=== PATIENT | female | born 1995 | race Caucasian/White ===

== ENCOUNTER 2019-08-27 19:14 | Emergency (ER) | payer MEDICAID, SELFPAY ==
--- NOTE | ~2019-08-27 | CT_ITS ---
EXAMINATION: CT abdomen pelvis w con DATE: 08/28/2019 01:08 INDICATION: Abdominal pain. TECHNIQUE: Computed tomography (CT) of the abdomen and pelvis was performed with 100 mL Omnipaque 350 intravenous contrast. Automated exposure control and iterative reconstruction technique were employe d. The dose-length product was 318.65 mGy-cm. COMPARISON: None. FINDINGS: The visualized portions of the lung bases demonstrate mild atelectasis on the right. No ple ural effusion. The heart size is normal. No pericardial effusion. The liver, gallbladder, spleen, morrow creas, adrenal glands, and kidneys are normal. There is a 3.7 cm mass in left ovary measuring greater than simple fluid in attenuation. There are no dilated loops of bowel. The appendix is normal. There is trace pelvic ascites. There are no pathologically enlarged lymph nodes. There is mild thoracic sp ondylosis. IMPRESSION: 1. 3.7 cm left ovarian mass, most likely a hemorrhagic cyst. Pelvis ultrasound is recommended. Reviewed, dictated and finalized at location A. STRIAL EQUIPMENT MECHANIC
--- NOTE | ~2019-08-27 | XR_ITS ---
EXAMINATION: XR chest 1V DATE: 08/27/2019 22:17 INDICATION: Cough, chills, nausea and vomiting TECHNIQUE: frontal view of the chest was obtained. COMPARISON: None FINDINGS: The lungs are clear with no focal airspace opacities, pulmonary edema, pleural effusion or pneumothor ax. The cardiomediastinal silhouette is normal. Mild thoracolumbar levocurvature. IMPRESSION: 1. No acute cardiopulmonary disease. Reviewed, dictated and finalized at location A. ERN PHILOSOPHY PROFESSOR
[2019-08-27 19:27] VITALS: BP 105/66; PULSE 77; RESP 16; TEMP 36.9; O2SAT 99
[2019-08-27 19:44] LABS: Basophils Percent Auto 0.7 % (0.2-1.2); Eosinophils Absolute Auto 0.1 K/mm3 (0-0.3); Eosinophils Percent Auto 0.9 % (0-4.4); Hematocrit 42.3 % (37.0-47.0); Hemoglobin 14.2 g/dL (12.0-15.0); Immature Granulocyte Absolute 0.01 K/mm3 (0.00-0.031); Immature Granulocyte Percent A 0.2 % (0-0.5); Lymphocytes Absolute Auto 1.66 K/mm3 (0.9-3.2); Lymphocytes Percent Auto 30.7 % (18.3-44.2); Mean Corpuscular HGB Conc 33.6 g/dl (32-36); Mean Corpuscular Hemoglobin 31.8 pg (26-34); Mean Corpuscular Volume 94.6 fl (80-100); Monocytes Absolute Auto 0.5 K/mm3 (0.1-0.6); Neutrophils Absolute Auto 3.1 K/mm3 (1.3-6.7); Neutrophils Percent Auto 57.5 % (45.5-73.1); Platelet Count Result 208 k/mm3 (150-375); Red Blood Count 4.47 M/mm3 (4.2-5.4); Red Cell Distribution Width 12.4 % (11.5-14.5); White Blood Count 5.4 K/mm3 (4.5-10.0)
[2019-08-27 19:56] LABS: Alanine Aminotransferase 14 U/L (4-35); Albumin Level 4.3 g/dL (3.5-5.1); Alkaline Phosphatase 51 U/L (38-126); Aspartate Amino Transferase 20 U/L (14-36); Bilirubin,Total < 0.1 mg/dL (0.2-1.3); Blood Urea Nitrogen 9 mg/dL (7-17); Calcium 8.9 mg/dL (8.4-10.2); Carbon Dioxide 23 mmol/L (22-30); Chloride 105 mmol/L (98-107); Estimated CRCL calculation 92 ml/min; Estimated Glomerular Filt Rate > 60; Glucose 94 mg/dL (65-105); Lipase 117 U/L (23-300); Sodium 140 mmol/L (137-145)
[2019-08-27 21:30] VITALS: BP 106/77; PULSE 67; RESP 12; O2SAT 100
[2019-08-27 21:44] LABS: Add Urine Microscopic? YES; Amorphous Sediment Urine Few; Appearance Urine Clear (Clear); Bilirubin Urine Negative (Negative); Blood Urine Negative (Negative); Color Urine Yellow (Yellow); Glucose Urine UA Negative (Negative); Ketones Urine Negative (Negative); Leukocyte Esterase Ur Negative LEU/UL (Negative); Mucus Urine Few /lpf; Nitrate Urine Negative (Negative); Protein Urine Negative (Negative); RBC Urine 0-2 /hpf (0-2); Specific Grav Ur 1.029 (1.001-1.035); Squamous Epithelial Cell Urine Few /hpf (Few); WBC Urine 0-3 /hpf
--- NOTE | 2019-08-27 22:10 | ED.ABDPAIN ---
HPI - Abdominal Pain General Chief Complaint: Abdominal Pain Stated Complaint: n/v, feeling hot, stomach pain Time Seen by Provider: 08/27/19 20:54 Source: patient and RN notes reviewed Mode of arrival: ambulatory Limitations: no limitations History of Present Illness HPI narrative: Pt is a 24 y/o female presenting to the ED c/o ABD pain. Pt states she has been feeling sick for 1 week. Pt reports ABD pain, N/V, dizziness, blurry vision, near-syncope, subjective fever, FLORES, cough, congestion, SOB, and urinary frequency, but denies diarrhea or dysuria. Pt states her LMP was on 08/03 and notes she has control implanted in her arm. Pt reports Hx's of Endometriosis, GERD, Sjogren's, Rheumatoid Arthritis, and Fibromyalgia. Pt notes she had Influenza A a month ago. Pertinent past history: none Onset (ago): week(s) (1) Location: other (ABD) Associated symptoms: nausea, vomiting, fever (Subjective), syncope (Near) and other (Dizziness; Blurry vision; Headache; cough; congestion; SOB; urinary frequency) Related Data Date of Last Menstrual Period: 08/03/19 Review of Systems Constitutional: Constitutional: Reports fever(s) (Subjective) Eyes: Eyes: Reports blurry vision ENT: Reports nasal congestion Respiratory: Respiratory: Reports cough and Reports dyspnea Gastrointestinal: Gastrointestinal: Reports abdominal pain, Denies diarrhea, Reports nausea and Reports vomiting Genitourinary: Genitourinary: Denies dysuria and Reports other (Urinary frequency) Neurologic: Reports dizziness, Reports syncope (Near) and Reports headache(s) PMFSH Past Medical History Medical History Endometriosis Fibromyalgia GERD (gastroesophageal reflux disease) Rheumatoid arthritis Sjogrens syndrome Surgical History Surgical History No significant past surgical history Social History Social History Smoking status: Current every day smoker Exam Narrative: Exam Narrative: General appearance: Well-developed, well-nourished, no family member at the bedside Skin: Normal color Head: Normocephalic, nontraumatic Eyes: Clear conjunctiva ENT: Oropharynx normal, ears normal, nose normal Neck: Supple, nontender Chest and respiratory: Airway patent, no respiratory distress, no accessory muscle use Heart: Regular rate/rhythm Abdomen: Soft, slight diffuse tenderness, no guarding or rebound, no organomegaly, quiet bowel sounds Vascular: Normal peripheral pulses, normal capillary refill. Musculoskeletal: Normal range of motion, nontender back Neurologic: Alert and oriented ?3, ICE GRINDER is normal as tested, no gross motor deficit Course Course Emergency Course: Improving Vital Signs Vital signs: Vital Signs Temperature 36.9 C 08/27/19 19:27 Pulse Rate 77 08/27/19 19:27 Respiratory Rate 16 08/27/19 19:27 Blood Pressure 105/66 08/27/19 19:27 Pulse Oximetry 99 08/27/19 19:27 Temperature 36.9 C 08/27/19 19:27 Pulse Rate 67 08/27/19 21:30 Respiratory Rate 12 08/27/19 21:30 Blood Pressure 106/77 08/27/19 21:30 Pulse Oximetry 100 08/27/19 21:30 MDM - Abdominal Pain MDM Narrative Medical decision making narrative: Viral syndrome, urinary tract infection, electrolyte imbalance is my concern. Labs, UA, chest x-ray ordered. Further plan to follow. IV fluid, IV Toradol and morphine ordered. Lab Data Result diagrams: 08/27/19 19:34 08/27/19 19:34 Labs: Lab Results 08/27/19 08/27/19 08/27/19 Range/Units 19:34 19:34 21:34 WBC 5.4 (4.5-10.0) K/mm3 RBC 4.47 (4.2-5.4) M/mm3 Hgb 1
[2019-08-27] MEDS: SODIUM CHLORIDE 0.9% IV 1,000 ML 999 ML IV CONT (22:48)
[2019-08-27] MEDS: MORPHINE SULFATE 4 MG/ML INJ IV PUSH (22:49)
[2019-08-27] MEDS: KETOROLAC 30 MG/ML VIAL (*BKC) IV PUSH (22:50)
[2019-08-27] MEDS: ONDANSETRON INJ 4 MG/2 ML VIAL IV PUSH (22:50)
[2019-08-28] MEDS: HYDROMORPHONE HCL 1 MG/ML INJ 0.5 MG IV PUSH (00:42)
[2019-08-28 01:47] VITALS: BP 121/86; PULSE 98; RESP 17; O2SAT 97
--- NOTE | 2019-08-28 01:52 | ED.ABDPAIN ---
HPI - Abdominal Pain General Chief Complaint: Abdominal Pain Stated Complaint: n/v, feeling hot, stomach pain Time Seen by Provider: 08/27/19 20:54 Source: patient and RN notes reviewed Mode of arrival: ambulatory Limitations: no limitations History of Present Illness Pertinent past history: none Onset (ago): week(s) (1) Location: other (ABD) Associated symptoms: nausea, vomiting, fever (Subjective), syncope (Near) and other (Dizziness; Blurry vision; Headache; cough; congestion; SOB; urinary frequency) [facility] Past Medical History Medical History Endometriosis Fibromyalgia GERD (gastroesophageal reflux disease) Rheumatoid arthritis Sjogrens syndrome Surgical History Surgical History No significant past surgical history Social History Social History Smoking status: Current every day smoker Course Vital Signs Vital signs: Vital Signs Temperature 36.9 C 08/27/19 19:27 Pulse Rate 77 08/27/19 19:27 Respiratory Rate 16 08/27/19 19:27 Blood Pressure 105/66 08/27/19 19:27 Pulse Oximetry 99 08/27/19 19:27 Temperature 36.9 C 08/27/19 19:27 Pulse Rate 67 08/27/19 21:30 Respiratory Rate 12 08/27/19 21:30 Blood Pressure 106/77 08/27/19 21:30 Pulse Oximetry 100 08/27/19 21:30 MDM - Abdominal Pain Lab Data Result diagrams: 08/27/19 19:34 08/27/19 19:34 Labs: Lab Results 08/27/19 08/27/19 08/27/19 Range/Units 19:34 19:34 21:34 WBC 5.4 (4.5-10.0) K/mm3 RBC 4.47 (4.2-5.4) M/mm3 Hgb 14.2 (12.0-15.0) g/dL Hct 42.3 (37.0-47.0) % MCV 94.6 (80-100) fl MCH 31.8 (26-34) pg MCHC 33.6 (32-36) g/dl RDW 12.4 (11.5-14.5) % Plt Count 208 (150-375) k/mm3 MPV 10.0 (7.4-10.4) fl Immature Gran % (Auto) 0.2 (0-0.5) % Neut % (Auto) 57.5 (45.5-73.1) % Lymph % (Auto) 30.7 (18.3-44.2) % [place] % (Auto) 10.0 H (2.6-8.5) % Eos % (Auto) 0.9 (0-4.4) % Baso % (Auto) 0.7 (0.2-1.2) % Lymph # (Auto) 1.66 (0.9-3.2) K/mm3 [place] # (Auto) 0.5 (0.1-0.6) K/mm3 Eos # (Auto) 0.1 (0-0.3) K/mm3 Baso # (Auto) 0.0 (0.0-0.1) K/mm3 Abs Immat Gran (auto) 0.01 (0.00-0.031) K/mm3 Absolute Neuts (auto) 3.1 (1.3-6.7) K/mm3 Absolute Nucleated RBC 0.0 (0.0-0.012) K/mm3 Nucleated RBC % 0.0 (0.0-0.2) % Sodium 140 (137-145) mmol/L Potassium 4.0 (3.4-5.0) mmol/L Chloride 105 (98-107) mmol/L Carbon Dioxide 23 (22-30) mmol/L BUN 9 (7-17) mg/dL Creatinine 0.60 L (0.7-1.0) mg/dL Estim Creat Clear Calc 92 ml/min Estimated GFR > 60 (59 - ) Glucose 94 (65-105) mg/dL Calcium 8.9 (8.4-10.2) mg/dL Total Bilirubin < 0.1 L (0.2-1.3) mg/dL AST 20 (14-36) U/L ALT 14 (4-35) U/L Alkaline Phosphatase 51 (38-126) U/L Total Protein 7.0 (6.3-8.2) g/dL Albumin 4.3 (3.5-5.1) g/dL Lipase 117 (23-300) U/L Urine Color Yellow (Yellow) Urine Appearance Clear (Clear) Urine pH 6.0 (5.0-9.0) Ur Specific [place] 1.029 (1.001-1.035) Urine Protein Negative (Negative) mg/dL Urine Glucose (UA) Negative (Negative) mg/dL Urine Ketones Negative (Negative) mg/dL Ur Blood (Man) Negative (Negative) Urine Nitrate Negative (Negative) Urine Bilirubin Negative (Negative) Urine Urobilinogen 2.0 H (<2.0) mg/dL Leukocyte Esterase Rfl Negative (Negative) VERA/UL Urine RBC 0-2 (0-2) /hpf Urine WBC 0-3 /hpf Ur Squamous Epith Cells Few (Few) /hpf Amorphous Sediment Few H (None) Urine Mucus Few H /lpf UCG Bedside Result Negative Reference Range: Negative Imaging Data My impression: CT scan of the abdomen and pelvis with IV contrast showed 4 cm cyst in the left ovary. Likely physiologic/functional in a patie
== END 2019-08-28 01:47 | disposition home or self-care (01) ==
PROVIDERS: Emergency Medicine; Emergency Provider Emergency Medicine
DX: B34.9 Viral infection, unspecified (principal); N83.209 Unspecified ovarian cyst, unspecified side; R10.9 Unspecified abdominal pain; G89.29 Other chronic pain; M79.7 Fibromyalgia; M06.9 Rheumatoid arthritis, unspecified; K21.9 Gastro-esophageal reflux disease without esophagitis
CPT/HCPCS: 36415; 71045; 74177; 80053; 81001; 81025; 83690; 85025; 96361; 96374; 96375; 99284; J1170; J1885; J2270; J2405; J7030; Q9967

== ENCOUNTER 2019-09-10 16:58 | Emergency (ER) | payer MEDICAID, SELFPAY ==
--- NOTE | ~2019-09-10 | XR_ITS ---
EXAMINATION: XR abdomen obstructive series DATE: 09/10/2019 22:07 INDICATION: Vomiting and diarrhea TECHNIQUE: Supine and upright views of the abdomen. FINDINGS: No prior studies for comparison. The visualized lung parenchyma is normal.. There is a nonobstructive bowel gas pattern. Gas and stool are seen throughout the colon to the level of the rectum. There is no free air. IMPRESSION: 1. No acute abdominal abnormality. Reviewed, dictated and finalized at location A. CAL PHYSICIST
[2019-09-10 17:38] VITALS: BP 136/74; PULSE 80; RESP 20; TEMP 36.9; O2SAT 95
[2019-09-10 17:48] LABS: Basophils Absolute Auto 0.1 K/mm3 (0.0-0.1); Basophils Percent Auto 0.7 % (0.2-1.2); Eosinophils Absolute Auto 0.1 K/mm3 (0-0.3); Eosinophils Percent Auto 0.7 % (0-4.4); Hematocrit 46.3 % (37.0-47.0); Hemoglobin 16.4 g/dL (12.0-15.0); Immature Granulocyte Absolute 0.01 K/mm3 (0.00-0.031); Immature Granulocyte Percent A 0.1 % (0-0.5); Lymphocytes Percent Auto 32.4 % (18.3-44.2); Mean Corpuscular HGB Conc 35.4 g/dl (32-36); Mean Corpuscular Volume 90.4 fl (80-100); Mean Platelet Volume 9.2 fl (7.4-10.4); Monocytes Absolute Auto 0.6 K/mm3 (0.1-0.6); Monocytes Percent Auto 8.1 % (2.6-8.5); Neutrophils Absolute Auto 3.9 K/mm3 (1.3-6.7); Platelet Count Result 303 k/mm3 (150-375); Red Blood Count 5.12 M/mm3 (4.2-5.4); Red Cell Distribution Width 12.2 % (11.5-14.5); White Blood Count 6.8 K/mm3 (4.5-10.0)
[2019-09-10 18:05] LABS: Alanine Aminotransferase 19 U/L (4-35); Albumin Level 5.1 g/dL (3.5-5.1); Alkaline Phosphatase 72 U/L (38-126); Aspartate Amino Transferase 24 U/L (14-36); Bilirubin,Total 0.7 mg/dL (0.2-1.3); Blood Urea Nitrogen 11 mg/dL (7-17); Calcium 9.8 mg/dL (8.4-10.2); Carbon Dioxide 25 mmol/L (22-30); Chloride 100 mmol/L (98-107); Estimated Glomerular Filt Rate > 60; Glucose 89 mg/dL (65-105); Lipase 142 U/L (23-300); Potassium 3.8 mmol/L (3.4-5.0); Sodium 141 mmol/L (137-145)
[2019-09-10 18:27] LABS: Add Urine Microscopic? YES; Appearance Urine Clear (Clear); Bacteria Urine Trace /hpf; Bilirubin Urine Negative (Negative); Blood Urine Negative (Negative); Color Urine Yellow (Yellow); Glucose Urine UA Negative (Negative); Ketones Urine 2+ mg/dL (Negative); Leukocyte Esterase Ur Trace LEU/UL (Negative); Mucus Urine Heavy /lpf; Nitrate Urine Negative (Negative); Protein Urine 1+ mg/dL (Negative); RBC Urine 0-2 /hpf (0-2); Squamous Epithelial Cell Urine Many /hpf (Few)
[2019-09-10 18:28] LABS: Specific Grav Ur 1.034 (1.001-1.035)
[2019-09-10 21:20] VITALS: BP 151/89; PULSE 59; RESP 18; TEMP 36.8; O2SAT 100
--- NOTE | 2019-09-10 21:35 | ED.GENADULT ---
HPI - General Adult General Chief complaint: Nausea/Vomiting/Diarrhea <Cece Wilson PA-C - Last Filed: 09/10/19 23:54> Stated complaint: N/V/D [id number] <Cece Wilson PA-C - Last Filed: 09/10/19 23:54> Time Seen by Provider: 09/10/19 21:15 <HAN Rutherford Last Filed: 09/10/19 23:54> Source: patient <HAN Rutherford Last Filed: 09/10/19 23:54> Mode of arrival: ambulatory <HAN Rutherford Last Filed: 09/10/19 23:54> Limitations: no limitations <HAN Rutherford Last Filed: 09/10/19 23:54> History of Present Illness HPI narrative: Patient is here for further evaluation of chronic nausea vomiting and now diarrhea. She has a complicated medical history with several autoimmune disorders including fibromyalgia, rheumatoid arthritis, irritable bowel syndrome. She is never been seen by a GI doctor. She states that the symptoms started earlier this month she was seen and prescribed Bentyl and Zofran, neither have helped her symptoms. She states that she vomits at least 5 times a day, she has not had a normal bowel movement in approximately 5 days and then today she developed diarrhea. She has pain in her anus when she does try to have a bowel movement and pain in her abdomen like she is doing sit ups . No bleeding. She denies any recent fever. <Cece Wilson PA-C - Last Filed: 09/10/19 23:54> Onset (ago): week(s) <HAN Rutherford Last Filed: 09/10/19 23:54> Radiation: non-radiation <HAN Rutherford Last Filed: 09/10/19 23:54> Severity: moderate <HAN Rutherford Last Filed: 09/10/19 23:54> Pain Consistency: intermittent <HAN Rutherford Last Filed: 02/17/20 23:54> Relieving factors: none <Cece Wilson PA-C - Last Filed: 09/10/19 23:54> Exacerbating factors: eating <Cece Wilson PA-C - Last Filed: 09/10/19 23:54> Associated symptoms: loss of appetite and nausea/vomiting <eCce Wilson PA-C - Last Filed: 09/10/19 23:54> Treatments prior to arrival: other (home meds) <Cece Wilson PA-C - Last Filed: 09/10/19 23:54> Related Data Allergies/adverse reactions: Allergies Allergy/AdvReac Type Severity Reaction Status Date / Time escitalopram [From Lexapro] AdvReac Rash Verified 09/10/19 22:19 metoclopramide [From Reglan] AdvReac Shakiness Verified 09/10/19 23:52 <Cece Wilson PA-C - Last Filed: 09/10/19 23:54> Review of Systems Review of Systems: All systems reviewed & are unremarkable except as noted in HPI and below <Cece Wilson PA-C - Last Filed: 09/10/19 23:54> PMFSH Past Medical History Medical History: Medical History Endometriosis Fibromyalgia GERD (gastroesophageal reflux disease) Rheumatoid arthritis Sjogrens syndrome <Cece Wilson PA-C - Last Filed: 09/10/19 23:54> Surgical History Surgical History: Surgical History No significant past surgical history <Cece Wilson PA-C - Last Filed: 09/10/19 23:54> Social History Social History: Social History Smoking status: Current every day smoker <Cece Wilson PA-C - Last Filed: 09/10/19 23:54> Exam Const: General: healthy appearing, no acute distress and alert <Cece Wilson PA-C - Last Filed: 09/10/19 23:54> Orientation/consciousness: patient oriented x3 <HAN Rutherford Last Filed: 09/10/19 23:54> HENMT: Head: normal to inspection <HAN Rutherford Last Filed: 09/10/19 23:54> Ears: TM's normal bilaterally <HAN Rutherford Last Filed: 09/10/19 23:54> Mouth: Yes moist mucous membranes <Cece Wilson PA-C - Last Filed: 09/10/19 23:54> Throat: posterior oropharynx abnormal erythema <HAN Rutherford Last Filed: 09/10/19 23:54> Eyes: Conj
[2019-09-10] MEDS: DEXTROSE 5%/0.9% SOD CHL 1,000 ML 999 ML IV CONT (22:20)
[2019-09-10 23:05] VITALS: BP 133/80; PULSE 95; RESP 18; O2SAT 100
[2019-09-10] MEDS: SODIUM CHLORIDE 0.9% IV 1,000 ML 999 ML IV CONT (23:41)
[2019-09-10] MEDS: METOCLOPRAMIDE HCL INJ 10 MG/2 ML VIAL IV PUSH (23:41)
--- NOTE | 2019-09-10 23:49 | PC.NURSE ---
PT HAVING ADVERSE REACTION TO MD PHONG NOTIFIED, 50 MG OF BENADRYL ORDERED AT THIS TIME.
--- NOTE | 2019-09-10 23:50 | PC.NURSE ---
PATIENT REQUESTING TO LEAVE AT THIS TIME. MD NOTIFIED. IV REMOVED, PT NOTIFIED OF WAITING FOR D/C PAPERS.
[2019-09-10 23:56] VITALS: BP 128/84; PULSE 101; RESP 13; TEMP 36.8; O2SAT 100
--- NOTE | 2019-09-13 19:21 | PC.NURSE ---
LATE ENTRY This note is being entered to document information to the patient's record. The following information was omitted on 09/10/2019, ns stopped at [id number]
== END 2019-09-10 23:58 | disposition home or self-care (01) ==
PROVIDERS: Emergency Provider General Practice
DX: R11.15 Cyclical vomiting syndrome unrelated to migraine (principal); K58.9 Irritable bowel syndrome, unspecified; T45.0X5A Adverse effect of antiallergic and antiemetic drugs, initial encounter; M79.7 Fibromyalgia; K21.9 Gastro-esophageal reflux disease without esophagitis; M06.9 Rheumatoid arthritis, unspecified
CPT/HCPCS: 36415; 74019; 80053; 81001; 81025; 83690; 85025; 96361; 96374; 96375; 99284; J1200; J2765; J7030; J7042

== ENCOUNTER 2020-07-09 18:55 | Inpatient (IN) | payer OTHER, SELFPAY ==
[2020-07-09] VITALS (23 sets, daily range): BP systolic 132–159; BP diastolic 97–146; PULSE 90–143; RESP 11–23; O2SAT 98–100
--- NOTE | ~2020-07-09 | XR_ITS ---
EXAMINATION: XR abdomen NG/feed tube insert EXAM DATE: 07/09/2020 19:46 INDICATION: Nasogastric tube insertion. TECHNIQUE: Frontal projection(s) of the abdomen for interpretation. There is no prior study for nathalie alas. FINDINGS: Feeding tube tip and side-port project over abdomen, overlying expected position of stomac h. Nonobstructive bowel gas pattern. There is no organomegaly. There are no osseous abnormalities robyn ntified. IMPRESSION: Feeding tube in position. Reviewed, dictated and finalized at location A. ASE CASE MANAGER RN IMPRESSION: Feeding tube in position.
--- NOTE | ~2020-07-09 | XR_ITS ---
EXAMINATION: XR chest ET placement EXAM DATE: 07/09/2020 19:46 INDICATION: Intubated. TECHNIQUE: Portable AP frontal chest x-ray was obtained. There is no prior study for comparison. FINDINGS: Endotracheal tube is just above the jonathan, could be safely retracted 2 cm. There is a naso gastric tube seen with tip collimated off the study, but below the left hemidiaphragm. Suspect natalia e ill-defined left-sided perihilar airspace disease. Could be edema, pneumonia, aspiration pneumonia. Right lung is clear. There is no pneumothorax suspected. There are no pleural effusions. There are n o osseous abnormalities identified. IMPRESSION: 1. ET tube could be safely retracted 2 cm. 2. Some ill-defined left perihilar opacity, could be edema, pneumonia or aspiration. Reviewed, dictated and finalized at location A. ESS PREPARER IMPRESSION: 1. ET tube could be safely retracted 2 cm. 2. Some ill-defined left perihilar opacity, could be edema, pneumonia or aspir ation.
--- NOTE | ~2020-07-09 | CT_ITS ---
EXAMINATION: CT brain wo con EXAM DATE: 07/09/2020 20:40 INDICATION: altered mental status TECHNIQUE: Spiral CT of the head was performed without contrast. Axial, coronal and sagittal images were reviewed. The dose-length product (DLP) for this examination was 605.33 mGy-cm. The exposure w as tailored according to patient size, and iterative reconstruction (ASIR) was used as additional dos e reduction technique. There are no prior studies for comparison. FINDINGS: There is no acute intraparenchymal hemorrhage. No evidence of intraparenchymal brain mass lesion. No evidence of acute infarction. There is no mass effect or midline shift. The ventricles are normal in size. There are no extra-axial collections. There are no acute calvarial fractures. T he orbits are unremarkable. Soft tissue is unremarkable. Mild ethmoid mucoperiosteal thickening. Co mpletely opacified nasal cavity. IMPRESSION: 1. No acute intracranial findings. 2. Completely opacified, including nasal cavity. Reviewed, dictated and finalized at location A. PECT MANAGER
--- NOTE | ~2020-07-09 | XR_ITS ---
XR chest 1V portable 07/10/2020 08:58 Indication: Acute respiratory failure. Pneumonia. Procedure: AP portable chest Comparison: 07/09/2020 Findings: Endotracheal tube tip 3.3 cm above the jonathan. NG tube in the stomach. Heart size upper nor mal. No focal air space disease, pulmonary edema, pleural effusion or suspected pneumothorax. Left ba silar infiltrate. Impression: 1: Retrocardiac infiltrate, most likely atelectasis. Pneumonia less favored. Reviewed, dictated and finalized at location A. OTHERAPIST Impression: 1: Retrocardiac infiltrate, most likely atelectasis. Pneumonia less favored.
[2020-07-09] MEDS: NALOXONE HCL INJ 2 MG/2 ML AMP IV PUSH (18:57)
--- NOTE | 2020-07-09 19:02 | ECG_ITS ---
Measurements Intervals [place] Rate: 133 P: 68 SC: 116 QRS: 88 QRSD: 80 T: 10 QT: 292 QTc: 436 Interpretive Statements SINUS TACHYCARDIA WITH SHORT SC INTERVAL BORDERLINE ST-T WAVE ABNORMALITY- INFERIOR LEADS ABNORMAL ECG Electronically Signed On 07-10-2020 6:45:32 WIRE HARNESS ASSEMBLER by Gee iRojas D.O.
[2020-07-09] MEDS: ETOMIDATE 20 MG/10 ML AMPUL 25 MG IV PUSH (19:07)
[2020-07-09] MEDS: SUCCINYLCHOLINE CHLORIDE 20 MG/ML 10 ML VIAL 120 MG IV PUSH (19:09)
--- NOTE | 2020-07-09 19:10 | PC.NURSE ---
Pt intubated per Dr. Saenz with glidoscope 7.5 ETT. Vocal cords observed on glidoscope, positive color change via CO2 detector, and pt has equal breath sounds to auscultation. Port CXR ordered to verify placement. ETT secured with tube atkins at 22cm.
--- NOTE | 2020-07-09 19:16 | PC.NURSE ---
OG placed per IDRIS Thompson.
--- NOTE | 2020-07-09 19:20 | PC.NURSE ---
Bedside report to IDRIS Dove, to continue care.
--- NOTE | 2020-07-09 19:33 | PC.NURSE ---
Portable xray being done for ETT placement and OG placement.
[2020-07-09] MEDS: PROPOFOL IV EMULSION 100 ML 4.9 MG (19:35)
[2020-07-09] MEDS: SODIUM CHLORIDE 0.9% IV 1,000 ML 999 ML IV CONT (19:44)
[2020-07-09 19:45] LABS: Basophils Percent Auto 0.3 % (0.2-1.2); Eosinophils Percent Auto 0.6 % (0-4.4); Hematocrit 26.8 % (37.0-47.0); Immature Granulocyte Absolute 0.02 K/mm3 (0.00-0.031); Immature Granulocyte Percent A 0.3 % (0-0.5); Lymphocytes Absolute Auto 0.97 K/mm3 (0.9-3.2); Lymphocytes Percent Auto 13.5 % (18.3-44.2); Mean Corpuscular HGB Conc 33.6 g/dl (32-36); Mean Corpuscular Hemoglobin 32.5 pg (26-34); Mean Corpuscular Volume 96.8 fl (80-100); Mean Platelet Volume 9.9 fl (7.4-10.4); Monocytes Absolute Auto 0.6 K/mm3 (0.1-0.6); Monocytes Percent Auto 7.6 % (2.6-8.5); Neutrophils Absolute Auto 5.6 K/mm3 (1.3-6.7); Neutrophils Percent Auto 77.7 % (45.5-73.1); Platelet Count Result 129 k/mm3 (150-375); Red Blood Count 2.77 M/mm3 (4.2-5.4); Red Cell Distribution Width 12.8 % (11.5-14.5); White Blood Count 7.2 K/mm3 (4.5-10.0)
--- NOTE | 2020-07-09 19:47 | ED.OVERDOSE ---
HPI - Overdose General Chief Complaint: Overdose Stated Complaint: OD Time Seen by Provider: 07/09/20 19:21 Source: family, RN notes reviewed and old records reviewed Mode of arrival: wheelchair History of Present Illness HPI Narrative: Patient nonverbal, GCS 9, history taken from family member 24-year-old female presents to emergency department with altered mental status. Per family member, patient may have overdosed on Seroquel yesterday. Family member states patient's boyfriend contacted her today, as she has been less responsive throughout the day. Upon arrival, patient was less responsive, family member immediately brought her to the emergency department. Related Data Home Medications Medication Instructions Recorded Confirmed Unable to Obtain Home Medications 07/09/20 07/09/20 Allergies Allergy/AdvReac Type Severity Reaction Status Date / Time latex Allergy Rash Verified 07/10/20 12:09 Review of Systems Review of Systems: ROS unobtainable: Yes unobtainable due to medical condition PMFSH Social History Social History Alcohol intake: unknown Substance use: unknown Gender identity (if verbalized by the patient): Female Spiritual care concerns: No Exam Narrative: Exam Narrative: GENERAL: Decreased mental status HEAD: Normocephalic, atraumatic. EYES: PERRLA and EOMI. ENT: Nares clear, no rhinorrhea or epistaxis. Mucous membranes moist. NECK: Supple. CHEST: Clear to auscultation. No respiratory distress. HEART: Tachycardia no murmur heard. Normal peripheral pulses. ABDOMEN: Soft, nontender, nondistended, normal active bowel sounds. EXTREMITIES: Normal range of motion. No edema. SKIN: Warm, dry, no rash. NEURO: GCS 9, no gag reflex, unable to follow commands. Const: Nutritional Appearance: well nourished Course Consultations Consultation #1: 2014 - discussed case with field gauger, accepts admission. 2019 -discussed case with hospitalist, accepts admission. Vital Signs Vital signs: Vital Signs Pulse Rate 140 H 07/09/20 18:55 Respiratory Rate 11 L 07/09/20 18:55 Blood Pressure 148/97 H 07/09/20 18:55 Pulse Oximetry 100 07/09/20 18:55 Temperature 36.1 C L 07/10/20 08:00 Pulse Rate 106 H 07/10/20 10:00 Respiratory Rate 14 07/10/20 10:00 Blood Pressure 122/68 07/10/20 10:00 Pulse Oximetry 100 07/10/20 10:00 Procedures Intubation Intubation #1: Intubation Date: 07/09/20 Intubation Time: 19:30 sedative: Etomidate paralytic: Succinylcholine Laryngoscope: fiber optic video scope Tube Size (cm): 7.5 Method of Intubation: orotracheal Number of Attempts: 1 Tube Placement Confirmation: visualized tube passing through cords and equal breath sounds bilaterally Patient Tolerated Procedure: well Intubation Complications: none MDM - Overdose MDM Narrative Medical decision making narrative: Patient initially presented with a GCS 9, no gag reflex, snoring respirations. Pt intubated for airway protection. Pt started on propofol drip for sedation. Per family, there is a concern that she overdosed on seroquel. UDS also positive for benzos and marijuana. Pt admitted to ICU for further management. Medical Records Attestation: I reviewed the patient's medical records. Lab Data Attestation: I reviewed the patient's lab results. Result diagrams: 07/09/20 19:39 07/10/20 03:34 Labs: Lab Results 07/09/20 07/09/20 07/09/20 Range/Units 19:39 19:39 19:39 WBC 7.2 (4.5-10.0) K/mm3 RBC 2.77 L (4.2-5.4) M/mm3 Hgb 9.0 L (12.0-15.0) g/dL Hct 26.8 L (37.0-47.0) % MCV 96.8 (80-100) fl MCH 32.5 (26-34) pg MCHC 33.6 (32-36) g/dl RDW 12.8 (11.5-14.5) % Plt Count 129 L (150-375) k/mm3 MPV 9.9 (7.4-10.4) fl Immature Gran % (Auto) 0.3 (0-0.5) % Neut % (Auto) 77.7 H (45.5-73
[2020-07-09] MEDS: PROPOFOL IV EMULSION 100 ML 7.38 MG IV CONT (19:50)
[2020-07-09 19:55] LABS: INR 1.7; Prothrombin Time 20.6 Seconds (11.1-14.7)
[2020-07-09 19:56] LABS: Acetaminophen < 10 ug/mL (10-30); Ethanol < 10 mg/dL (<10); Partial Thromboplastin Time 50.6 SECONDS (22.3-36.8); Salicylate < 1.0 mg/dL (2-20)
[2020-07-09 20:01] LABS: Anion Gap -1 mmol/L (8-16); Blood Urea Nitrogen 7 mg/dL (7-17); Calcium 3.5 mg/dL (8.4-10.2); Carbon Dioxide 13 mmol/L (22-30); Chloride 129 mmol/L (98-107); Creatine Kinase 37 U/L (30-135); Estimated Glomerular Filt Rate > 60; Glucose 55 mg/dL (65-105); Potassium < 2.0 mmol/L (3.4-5.0); Sodium 141 mmol/L (137-145)
[2020-07-09 20:04] LABS: Alveolar/Arterial O2 Gradient 132.8 mmHg; Base Excess ABG -4.4 mEq/l (+/-2.0); Device VENTILATOR; Fractional Inspired Oxygen 40 %; HCO3 ABG 20.5 mEq/l (22.0-26.0); Modified Allen's Test Unable to perform; Oxygen Content ABG 21.2 %vol (16.0-22.0); Oxygen Saturation ABG 97.8 % (95.0-100.0); Oxyhemoglobin 96.1 % THb (90.0-100.0); PCO2 ABG 37.5 mmHg (35.0-45.0); PO2 ABG 109.3 mmHg (80.0-100.0); PO2 FiO2 Ratio Arterial Blood 2.73 %; Site Drawn LEFT RADIAL; Total Hemoglobin 15.6 g/dL (12.0-18.0); pH ABG 7.355 (7.350-7.450)
[2020-07-09 20:05] LABS: Arterial Blood Gas PEEP 5 cmH2O; Arterial Blood Gas Tidal Volume 350 ml; Arterial Blood Gas Vent Mode CMV; Arterial Blood Gas Ventilator rate 12 /MIN
[2020-07-09 20:05] LABS: Amphetamine Screen Urine Negative (Negative); Barbiturate Screen Urine Negative (Negative); Benzodiazepines Screen Urine Positive (Negative); Cannabinoid Screen Urine Positive (Negative); Cocaine Screen Urine Negative (Negative); Methadone Screen Urine Negative (Negative); Opiate Screen Urine Negative (Negative); Phencyclidine Screen Urine Negative (Negative)
[2020-07-09] MEDS: AMPICILLIN SULB 3 GM/NS 100 ML 3 GM/100 ML VIAL IVPB (20:08)
--- NOTE | 2020-07-09 20:08 | PC.NURSE ---
This patient's family member reports to me that she would like to speak with the EDP regarding concerns related to what may have occurred to the patient today. ED charge nurse (IDRIS Thomas) was notified of the patient's request. EDP was in patient room at the time the charge nurse was notified.
--- NOTE | 2020-07-09 20:27 | PM.IMHP ---
H&P: HPI History of Present Illness Date/Time: 07/09/20 20:27 Chief Complaint: Altered mental status Narrative: Jessica Munoz is a 24 year old female with a known past medical history presents to ED with altered mental status. Per family member there is question of patient overdosing on Seroquel the day before. as she became less responsive she was brought to the ED. I attempted to call sister with no response. There was a question of maybe a boyfriend being involved. Police may have been called as well. At this point I was not able to obtain more information. Will need to call family again in the morning. In the ED: Lab work was benign other than hypokalemia and hypoglycemia. EKG showed sinus tachycardia rate 133. patient's GCS was 9, unable to follow commands, was subsequently intubated. Review of Systems Review of Systems: ROS unobtainable: Yes unobtainable due to endotracheal tube PMFSH Social History Social History Alcohol intake: unknown Substance use: unknown Gender identity (if verbalized by the patient): Female Spiritual care concerns: No Meds Home Medications and Allergies Home Medications Medication Instructions Recorded Confirmed Type Unable to Obtain Home Medications 07/09/20 07/09/20 History Allergies Allergy/AdvReac Type Severity Reaction Status Date / Time Unable to Assess Allergy Verified 07/09/20 19:24 Vital Signs Vital Signs - 24 hr 07/09/20 18:55 07/09/20 19:35 07/09/20 19:49 Pulse Rate 140 H 106 H 95 Respiratory Rate 11 L 23 H 17 Blood Pressure 148/97 H Pulse Oximetry 100 Exam Narrative: Exam Narrative: - GENERAL: Young woman intubated and sedated. - EYES: Anicteric. Equally reactive. - HENT: Moist mucous membranes. ET tube in place. - LUNGS: Clear to auscultation bilaterally, no wheezing, rhonchi, or rales. - CARDIOVASCULAR: Tachycardic rate and rhythm. No murmur. No JVD. - ABDOMEN: Soft, non-tender and non-distended. No palpable masses. - EXTREMITIES: No edema. Peripheral pulses 2+. Non-tender. Left hand dorsal side minor bruise may be previous injection site? - NEUROLOGIC: Unable to assess intubated. - PSYCHIATRIC: Unable to assess intubated - SKIN: No obvious wounds other than left hand. - LYMPH: No cervical lymphadenopathy. H&P: Results Labs Labs: Short CBC 07/09/20 Range/Units 19:39 WBC 7.2 (4.5-10.0) K/mm3 Hgb 9.0 L (12.0-15.0) g/dL Hct 26.8 L (37.0-47.0) % Plt Count 129 L (150-375) k/mm3 BMP 07/09/20 19:39 Sodium 141 Potassium < 2.0 L* Chloride 129 H Carbon Dioxide 13 L BUN 7 Creatinine 0.30 L Glucose 55 L* Calcium 3.5 L Cardiac Enzymes 07/09/20 07/09/20 Range/Units 19:39 19:39 Total Creatine Kinase Cancelled 37 Assessment and Plan Assessment and plan (1) Overdose: Qualifiers: Encounter type: initial encounter Injury intent: undetermined intent Qualified Code(s): T50.904A - Poisoning by unspecified drugs, medicaments and biological substances, undetermined, initial encounter Code(s): T50.901A - Poisoning by unspecified drugs, medicaments and biological substances, accidental (unintentional), initial encounter Status: Acute Assessment and Plan: -possible Seroquel overdose as per family -QTC was less than 500, will follow-up with repeat EKG in a.m. (2) Altered mental status: Qualifiers: Altered mental status type: unspecified Qualified Code(s): R41.82 - Altered mental status, unspecified Code(s): R41.82 - Altered mental status, unspecified Status: Acute Assessment and Plan: -currently intubated and now waking up slowly -UDS positive for benzos and cannabis -if she is able to follow commands we will extubate -ABGs look good patient does not have any respiratory issues -CMV mode tidal volume 350, FiO2 35%, peep 5 -sedation with propofol and fent
--- NOTE | 2020-07-09 20:45 | PC.NURSE ---
Patient's sister Krystal Burks [phone]
[2020-07-09 23:28] LABS: Glucose Point of Care 152 (65-105)
[2020-07-10] VITALS (15 sets, daily range): BP systolic 110–148; BP diastolic 68–110; PULSE 84–135; RESP 12–28; TEMP 36.1–36.5; O2SAT 100; BMI 25.2; BMI 25.4
[2020-07-10] MEDS: SODIUM CHLORIDE 0.9% IV 1,000 ML 100 ML IV CONT (00:18)
[2020-07-10 00:30] LABS: Glucose Point of Care 117 (65-105)
[2020-07-10] MEDS: FENTANYL 2,500MCG/NS250ML(*CRX 2,500 MCG/250 ML BAG IV CONT (01:14)
[2020-07-10 01:18] LABS: Glucose Point of Care 95 (65-105)
--- NOTE | 2020-07-10 01:33 | PC.NURSE ---
This patient, Jessica Munoz, was admitted to Intensive Care Unit-11 on 07/09/2020 at 2300. Patient/family oriented to hospital policies and general routines including ID bracelet, bed and alarms, visiting hours, pain management, procedures, bathroom and other care routines, personal items, smoking policy, room service/diet, and visiting hours. Information on how to activate the Rapid Response Team has been discussed. Patient/Family are encouraged to report perceived risks to care and to ask questions if they do not understand what they are told or what they should do.
[2020-07-10] MEDS: fentaNYL CITRATE INJ (*CRX) 100 MCG/2 ML VIAL 50 MCG IV PUSH (01:53)
[2020-07-10] MEDS: PROPOFOL IV EMULSION 100 ML 19.68 MG IV CONT (02:20)
[2020-07-10 02:24] LABS: Glucose Point of Care 110 (65-105)
[2020-07-10 04:17] LABS: Anion Gap 6 mmol/L (8-16); Blood Urea Nitrogen 10 mg/dL (7-17); Carbon Dioxide 27 mmol/L (22-30); Chloride 106 mmol/L (98-107); Estimated CRCL calculation 99 ml/min; Estimated Glomerular Filt Rate > 60; Glucose 110 mg/dL (65-105); Potassium 3.9 mmol/L (3.4-5.0); Sodium 139 mmol/L (137-145)
[2020-07-10 05:18] LABS: Alveolar/Arterial O2 Gradient 81.8 mmHg; Base Excess ABG -2.3 mEq/l (+/-2.0); Carboxyhemoglobin 0.3 % THb (0-2.0); Fractional Inspired Oxygen 35 %; HCO3 ABG 21.9 mEq/l (22.0-26.0); Methemoglobin ABG 0.2 %THb (0-1.5); Oxygen Content ABG 21.4 %vol (16.0-22.0); Oxygen Saturation ABG 98.5 % (95.0-100.0); Oxyhemoglobin 97.3 % THb (90.0-100.0); PCO2 ABG 36.5 mmHg (35.0-45.0); PO2 ABG 125.3 mmHg (80.0-100.0); PO2 FiO2 Ratio Arterial Blood 3.58 %; Reduced Hemoglobin 2.2 %THb (0-5.0); Total Hemoglobin 15.5 g/dL (12.0-18.0); pH ABG 7.397 (7.350-7.450)
[2020-07-10 05:20] LABS: Arterial Blood Gas PEEP 5 cmH2O; Arterial Blood Gas Tidal Volume 350 ml; Arterial Blood Gas Vent Mode CMV; Arterial Blood Gas Ventilator rate 12 /MIN; Device VENTILATOR; Modified Allen's Test Pass; Site Drawn RIGHT RADIAL
[2020-07-10 05:29] LABS: Glucose Point of Care 107 (65-105)
[2020-07-10 06:58] LABS: Glucose Point of Care 137 (65-105)
[2020-07-10] MEDS: SODIUM CHLORIDE 0.9% IV 1,000 ML 999 ML IV CONT (08:28)
[2020-07-10 09:05] LABS: Alanine Aminotransferase 23 U/L (4-35); Albumin Level 3.9 g/dL (3.5-5.1); Alkaline Phosphatase 64 U/L (38-126); Aspartate Amino Transferase 25 U/L (14-36); Bilirubin,Total 0.4 mg/dL (0.2-1.3); Creatine Kinase 70 U/L (30-135)
[2020-07-10 09:12] LABS: Magnesium 1.8 mg/dL (1.6-2.3); Phosphorus 3.5 mg/dL (2.5-4.5)
[2020-07-10 09:14] LABS: Iron 31 ug/dL (37-170)
[2020-07-10 09:23] LABS: Percent Iron Saturation 8 % (20-50)
[2020-07-10 10:05] LABS: Folic Acid 7.5 ng/mL (2.76->20)
--- NOTE | 2020-07-10 10:14 | PC.NURSE ---
1325 Patient noted be sitting straight up in bed while still intubated. Went to bedside and patient was following commands and updated on where she was and what happened. Dr. Begum called to bedside to see patient and ordered her extubated. All sedation turned off and RT extubated patient
--- NOTE | 2020-07-10 13:56 | WPDCNINT ---
Assessment and Plan Assessment and plan (1) Encounter for intubation: Code(s): Z01.818 - Encounter for other preprocedural examination Status: Acute Assessment and Plan: Patient presented with overdose, unresponsive low GCS score, was intubated for airway protection -patient on CMV mode of ventilation 35% FiO2, -sedated with propofol and fentanyl, was sitting up in bed, patient was following commands, ABGs this morning were unremarkable. Patient was successfully extubated to room air with good O2 sats. (2) Overdose: Qualifiers: Encounter type: initial encounter Injury intent: undetermined intent Qualified Code(s): T50.904A - Poisoning by unspecified drugs, medicaments and biological substances, undetermined, initial encounter Code(s): T50.901A - Poisoning by unspecified drugs, medicaments and biological substances, accidental (unintentional), initial encounter Status: Acute Assessment and Plan: Post extubation patient stated that she took drugs to get high and not to overdose or commit suicide. (3) Altered mental status: Qualifiers: Altered mental status type: unspecified Qualified Code(s): R41.82 - Altered mental status, unspecified Code(s): R41.82 - Altered mental status, unspecified Status: Acute Assessment and Plan: Altered mental status most likely related to drug overdose -resolved (4) Hypokalemia: Code(s): E87.6 - Hypokalemia Status: Acute Assessment and Plan: Hypokalemia on admission, potassium was repleted, repeat potassium this morning is normal -continue (5) DVT prophylaxis: Code(s): Z29.9 - Encounter for prophylactic measures, unspecified Status: Acute Assessment and Plan: SCDs Additional Plan Discussed with patient and updated with her condition and plan of care. -the also discuss with Dr. Xiong Code status: Full code Critical care time spent: 43 minutes Due to a high probability of clinically significant, life threatening deterioration, the patient required my highest level of preparedness to intervene emergently and I personally spent this critical care time directly and personally managing the patient. This critical care time included obtaining a history; examining the patient; pulse oximetry; ordering and review of studies; arranging urgent treatment with development of a management plan; evaluation of patient's response to treatment; frequent reassessment; and discussions with other providers. It was exclusive of separately billable procedures and treating other patients and teaching time. Please see Assessment and Plan section and the rest of the note for further information on patient assessment and treatment Networker Consult Note Consult date: 07/10/20 Time Seen: 07:19 Reason for consult: Overdose, patient stated she wanted to get high on drugs but not want to harm herself and this was not a suicide attempt HPI: Jessica Munoz is a 25 year old female with no known past medical history presented the ED on 07/09/2020 with altered mental status. Patient was will less responsive, family members stated that patient probably took overdose of Seroquel a day prior to admission. There was also question of maybe a bifid being involved. Police may have been called as well. Patient was intubated in the ER for a low GCS score and inability to protect her airway. Urine drug screen was positive for benzos and marijuana. Chest x-ray shows small ill-defined the left perihilar opacity could be edema, pneumonia aspiration. Patient was transferred to the ICU for further management. 07/10: Patient seen examined this morning in the ICU, remains intubated on CMV mode of ventilation, peep of 5 in 35% FiO2. ABGs look good, patient is on propofol and fentanyl infusion sedation. Despite being on sedation patient is sitting up in the bed, awake, follows simple commands. I asked the bedside RN and respi
[2020-07-10 17:18] LABS: SARS-CoV-2 RNA PCR Negative
--- NOTE | 2020-07-10 17:42 | PM.DS ---
DS: Admitting Diagnosis Admitting Diagnosis Admitting Diagnosis: Altered mental status with overdose DS: Discharge Diagnosis Discharge Diagnosis (1) Overdose: Qualifiers: Encounter type: initial encounter Injury intent: undetermined intent Qualified Code(s): T50.904A - Poisoning by unspecified drugs, medicaments and biological substances, undetermined, initial encounter Code(s): T50.901A - Poisoning by unspecified drugs, medicaments and biological substances, accidental (unintentional), initial encounter Status: Acute Assessment and Plan: After extubation patient relates taking unknown quantity of muscle relaxants and Seroquel. She was told alert oriented x4 and had no signs of serotonin syndrome. Monitor sinus rhythm no QT prolongation. Patient adamantly denied suicidal ideation and related that she was taking the pills to ?get high ? (2) Altered mental status: Qualifiers: Altered mental status type: unspecified Qualified Code(s): R41.82 - Altered mental status, unspecified Code(s): R41.82 - Altered mental status, unspecified Status: Acute Assessment and Plan: Secondary to above. After extubation she was alert and oriented x4 (3) Anemia: Qualifiers: Anemia type: unspecified type Qualified Code(s): D64.9 - Anemia, unspecified Code(s): D64.9 - Anemia, unspecified Status: Acute Assessment and Plan: Mild anemia with hemoglobin 9.0. B12 low at 2 61 and iron studies compatible with iron deficiency anemia with iron of 31 and TIBC of 367 with ferritin of only 17. She is encouraged to follow-up with her primary and she relates that she does had an EGD within the week prior to admission DS: Summary Hospital Course Hospital Course: 25 year old female brought to emergency room by family with altered mental status and concern of possible overdose. Patient was lethargic and not protecting airway thus, she she was intubated and mechanically ventilated. One sedation was removed she was alert sitting with ET tube which was removed. She was alert and oriented x4 and related that she had taken muscle relaxants and Seroquel in an attempt to ?get high ?. She denied any suicidal ideation. She is medically stable and and able to be discharged home to the care of her family Time Spent with Patient Time attestation: Total time spent providing and/or coordinating discharge services: 35 minutes Exam Narrative: Exam Narrative: Condition on discharge Blood pressure 122/68 pulse is 100 respirations 16 per minute afebrile saturating 100% on room air Pupils equal reactive light sclera anicteric Neck supple no adenopathy Lungs clear CV regular rate rhythm no murmurs Abdomen benign Extremities without edema Neuro she was alert she was oriented x4 cranial nerves 2-12 are intact with no focal deficits., there is no clinical signs of serotonin syndrome She adamantly denies any suicidal ideation. She was stable and able to be discharged home DS: Data Data Completed and Pending Labs on day of discharge: Labs from last 24 hours 07/10/20 07/10/20 07/10/20 08:20 08:20 06:29 WBC RBC Hgb Hct MCV MCH MCHC RDW Plt Count MPV Immature Gran % (Auto) Neut % (Auto) Lymph % (Auto) [place] % (Auto) Eos % (Auto) Baso % (Auto) Lymph # (Auto) [place] # (Auto) Eos # (Auto) Baso # (Auto) Abs Immat Gran (auto) Absolute Neuts (auto) Absolute Nucleated RBC Nucleated RBC % PT INR APTT Puncture Site ABG pH ABG pCO2 ABG pO2 ABG PO2/FiO2 Ratio ABG HCO3 ABG O2 Saturation ABG O2 Content ABG Base Excess A-a Gradient Oxyhemoglobin Carboxyhemoglobin Methemoglobin Reduced Hemoglobin Total Hemoglobin O2 Delivery Device O2 Liters/Min Minute Volume Vent Rate Vent Mode FiO2 Tidal Volume PEEP Peak Inspir Pressure P
== END 2020-07-10 12:50 | disposition home or self-care (01) | DRG 812 ==
LOC: ANHED 20:49 → ANHICU 07-10 12:39
PROVIDERS: Internal Medicine; Admitting Provider Student in an Organized Health Care Education/Training Program; Emergency Provider Emergency Medicine; Visit Provider Internal Medicine
DX: T43.591A Poisoning by other antipsychotics and neuroleptics, accidental (unintentional), initial encounter (principal); T48.201A Poisoning by unspecified drugs acting on muscles, accidental (unintentional), initial encounter; T17.890A Other foreign object in other parts of respiratory tract causing asphyxiation, initial encounter; E87.6 Hypokalemia; E16.2 Hypoglycemia, unspecified; Z20.828 Contact with and (suspected) exposure to other viral communicable diseases; D50.9 Iron deficiency anemia, unspecified; K21.9 Gastro-esophageal reflux disease without esophagitis; M06.9 Rheumatoid arthritis, unspecified; M79.7 Fibromyalgia; M35.00 Sjogren syndrome, unspecified; N80.9 Endometriosis, unspecified; F17.210 Nicotine dependence, cigarettes, uncomplicated
CPT/HCPCS: 31500; 36415; 36600; 70450; 71045; 80048; 80076; 80307; 81025; 82375; 82550; 82607; 82728; 82746; 82805; 83050; 83540; 83550; 83735; 84100; 85025; 85610; 85730; 87635; 93005; 94003; 96365; 96367; 96375; 99285; C9803; J0295; J0330; J2310; J2704; J3010; J3480; J7030; U0003